=== PATIENT | female | born 1945 | race Caucasian/White ===

== ENCOUNTER → 2019-12-14 | Outpatient (CLI) | payer MEDICARE | LOC: COL.RAD 13:32 | DX: Z01.812 Encounter for preprocedural laboratory examination (principal); K59.03 Drug induced constipation; K76.0 Fatty (change of) liver, not elsewhere classified; M43.8X6 Other specified deforming dorsopathies, lumbar region; M43.8X4 Other specified deforming dorsopathies, thoracic region; Z87.19 Personal history of other diseases of the digestive system; Z96.643 Presence of artificial hip joint, bilateral; Z90.710 Acquired absence of both cervix and uterus; Z98.890 Other specified postprocedural states | CPT/HCPCS: Q9967 ==